=== PATIENT | male | born 1980 | race Caucasian/White ===

== ENCOUNTER 2017-04-25 09:38 | Emergency (ER) | payer OTHER ==
--- NOTE | 2017-04-25 10:01 | UC ---
General HPI - HPI Summary HPI Summary: 36 yo gentleman presents c/o sinus congestion / pressure, cough, post nasal drip , fontal h/a's. No vis / aud changes. Mr. Smallwood reports + household contact sick with similar. No rash. No sob / cp / palpitations. No GI issues. No rash. Hx asthma as a child, reports that he doesn't want inhalers. - History of Current Complaint Chief Complaint: UCRespiratory Stated Complaint: COUGH/SINUSES Time Seen by Provider: 04/25/17 10:00 Hx Obtained From: Patient - Allergy/Home Medications Allergies/Adverse Reactions: Allergies Allergy/AdvReac Type Severity Reaction Status Date / Time No Known Allergies Allergy Verified 04/25/17 09:58 PMH/Surg Hx/FS Hx/Imm Hx Previously Healthy: Yes - Surgical History Surgical History: Yes Surgery Procedure, Year, and Place: HERNIA REPAIR, TONSILLECTOMY, VASECTOMY - Social History Alcohol Use: Occasionally Substance Use Type: None Smoking Status (MU): Never Smoked Tobacco Review of Systems Constitutional: Negative Skin: Negative Eyes: Other - watery eyes ENT: Sore Throat, Ear Ache, Nasal Discharge, Sinus Congestion Respiratory: Cough Cardiovascular: Negative Gastrointestinal: Negative Genitourinary: Negative Motor: Negative Neurovascular: Negative Musculoskeletal: Negative Neurological: Negative Psychological: Negative Is Patient Immunocompromised?: No All Other Systems Reviewed And Are Negative: Yes Physical Exam Triage Information Reviewed: Yes Appearance: Well-Nourished - sitting up. conversing easily. Vital Signs: Initial Vital Signs Temp 97.9 F 04/25/17 09:47 Pulse 86 04/25/17 09:47 Resp 20 04/25/17 09:47 BP 138/93 04/25/17 09:47 Pulse Ox 98 04/25/17 09:47 Vital Signs Reviewed: Yes Eye Exam: Normal - eyes a little red /watery, not c/w conjunctivitis ENT: Positive: Pharyngeal erythema - red post pharynx, no spots, uvula midline. , Nasal congestion, TM dull - dull au, Sinus tenderness - subj frontal / maxillary sinus pressure and pain no redness, no cellulitis appreciated. Neck exam: Normal Neck: Positive: Supple, Nontender, No Lymphadenopathy Respiratory Exam: Normal - mild rhonchorus cough, no marco wheeze Respiratory: Positive: Chest non-tender, Lungs clear, Normal breath sounds, No respiratory distress, No accessory muscle use Cardiovascular Exam: Normal Cardiovascular: Positive: RRR, No Murmur, Pulses Normal, Brisk Capillary Refill Abdominal Exam: Normal Abdomen Description: Positive: Nontender Musculoskeletal Exam: Normal - moves all 4 ext's ok Neurological Exam: Normal - grossly nonfocal Psychological Exam: Normal - conversing easily and appropriately Skin Exam: Normal - no visible or reported rash Course/Dx - Course Course Of Treatment: 138/93 BP, d/w pt. Reviewed s/sx, coa and tx plan. Declines nasal spray or inhaler. Questions as posed answered to the best of my ability. - Differential Dx - Multi-Symptom Provider Diagnoses: sinusitis Discharge - Discharge Plan Condition: Stable Disposition: HOME Prescriptions: Azithromyxin LONNIE (NF) [Z-Lonnie (Zithromax) 250 mg tabs #6] 2 tab PO .TODAY, THEN 1 DAILY #6 tab Patient Education Materials: Sinusitis (ED) Referrals: No Primary Care Phys,NOPCP [Medical Doctor] - Additional Instructions: 138/93 Blood pressure - please have this rechecked, recommend within about 4 weeks. Follow up with your primary care physician for breathing recheck (about 4 weeks) . Seek medical attention for worse or new problems.
[2017-04-25 10:21] VITALS: BP 138/93
== END 2017-04-25 10:26 | disposition home or self-care (01) ==
LOC: UCCORT 09:38
DX: J32.9 Chronic sinusitis, unspecified (principal)
CPT/HCPCS: 99202; G0463

== ENCOUNTER 2017-07-02 07:12 | Emergency (ER) | payer OTHER ==
[2017-07-02 07:22] VITALS: BP 154/91
--- NOTE | 2017-07-02 07:34 | UC ---
FLU HPI - HPI Summary HPI Summary: Subjective fever, cough, achiness, congestion for two days. Brother was sick last week. Son has a viral type illness as well. He has no prior lung disease. - History of Current Complaint Chief Complaint: UCGeneralIllness Stated Complaint: COLD SYMPTOMS Time Seen by Provider: 07/02/17 07:26 Hx Obtained From: Patient Onset/Duration: Gradual Onset, Lasting Days Severity Currently: Moderate Severity Initially: Moderate Pain Intensity: 2 Associated Signs & Symptoms: Positive: Cough, Nasal Congestion. Negative: Vomiting, Diarrhea - Allergy/Home Medications Allergies/Adverse Reactions: Allergies Allergy/AdvReac Type Severity Reaction Status Date / Time No Known Allergies Allergy Verified 07/02/17 07:19 Home Medications: Home Medications Dm/Acetaminophen/Doxylamine [Vicks Nyquil Cold & Flu Liquid] 30 ml PO BEDTIME PRN 07/02/17 [History Confirmed 07/02/17] PMH/Surg Hx/FS Hx/Imm Hx Previously Healthy: No - obesity. - Surgical History Surgical History: Yes Surgery Procedure, Year, and Place: HERNIA REPAIR, TONSILLECTOMY, VASECTOMY - Family History Known Family History: Positive: Other - son and brother have similar. - Social History Occupation: Employed Full-time Lives: With Family Alcohol Use: Occasionally Substance Use Type: None Smoking Status (MU): Never Smoked Tobacco Review of Systems Constitutional: Fever ENT: Sore Throat, Nasal Discharge, Sinus Congestion Respiratory: Cough All Other Systems Reviewed And Are Negative: Yes Physical Exam Triage Information Reviewed: Yes Appearance: Well-Appearing, No Pain Distress Vital Signs: Initial Vital Signs Temp 98.2 F 07/02/17 07:20 Pulse 99 07/02/17 07:20 Resp 16 07/02/17 07:20 BP 154/91 07/02/17 07:20 Pulse Ox 96 07/02/17 07:20 Vital Signs Reviewed: Yes Eye Exam: Normal Eyes: Positive: Conjunctiva Clear ENT: Positive: Pharyngeal erythema, Nasal congestion, TMs normal, Sinus tenderness. Negative: TM bulging, TM dull, TM red, Tonsillar swelling, Tonsillar exudate, Uvula midline Neck: Positive: Supple, Nontender, No Lymphadenopathy Respiratory: Positive: Lungs clear, Normal breath sounds, No respiratory distress, No accessory muscle use. Negative: Respiratory distress, Decreased breath sounds, Accessory muscle use, Crackles, Rhonchi, Stridor, Wheezing Cardiovascular: Positive: No Murmur, Pulses Normal Abdomen Description: Positive: No Organomegaly, Soft. Negative: Distended, Guarding Musculoskeletal: Positive: ROM Intact, No Edema Neurological: Positive: Alert, Muscle Tone Normal. Negative: Fatigued Psychological: Positive: Age Appropriate Behavior Skin: Negative: rashes Flu Course/Dx - Course Course Of Treatment: Low risk for complications. No infant or elderly household contacts. - Differential Dx/Diagnosis Provider Diagnoses: viral illness. Influenza Discharge - Discharge Plan Condition: Good Disposition: HOME Prescriptions: Oseltamivir CAP* [Tamiflu CAP*] 75 mg PO BID #10 cap Patient Education Materials: Influenza (ED) Referrals: Michelle Pereira MD [Primary Care Provider] -
== END 2017-07-02 07:58 | disposition home or self-care (01) ==
LOC: UCCORT 07:12
DX: J10.1 Influenza due to other identified influenza virus with other respiratory manifestations (principal); B34.9 Viral infection, unspecified; Z20.89 Contact with and (suspected) exposure to other communicable diseases
CPT/HCPCS: 87502; 99212; G0463

== ENCOUNTER 2017-12-28 09:46 | Emergency (ER) | payer OTHER ==
[2017-12-28 10:22] VITALS: BP 146/95
--- NOTE | 2017-12-28 11:11 | RAD ---
INDICATION: Left ankle injury. TECHNIQUE: 3 views of the left ankle were obtained. FINDINGS: There is diffuse soft tissue swelling which is most prominent adjacent to the lateral malleolus. The bones are in normal alignment. There are 2 well-corticated small bony ossicles adjacent to the distal fibula. No acute fracture is seen. IMPRESSION: SOFT TISSUE SWELLING, NO ACUTE FRACTURE IS SEEN.
--- NOTE | 2017-12-28 11:13 | RAD ---
INDICATION: Left lower leg injury. TECHNIQUE: 2 views of the left lower leg were obtained. FINDINGS: The bones are normal alignment. No fracture is seen. IMPRESSION: NO EVIDENCE OF FRACTURE.
--- NOTE | 2017-12-28 11:21 | UC ---
Lower Extremity/Ankle HPI - HPI Summary HPI Summary: walking on black top and rolled L ankle last pm. c/o pain to lateral L leg and ankle. - History of Current Complaint Chief Complaint: UCLowerExtremity Stated Complaint: LEFT ANKLE INJURY Time Seen by Provider: 12/28/17 10:37 Hx Obtained From: Patient Onset/Duration: Sudden Onset Pain Intensity: 8 Aggravating Factor(s): Standing, Ambulation Alleviating Factor(s): Rest Able to Bear Weight: Yes - Allergies/Home Medications Allergies/Adverse Reactions: Allergies Allergy/AdvReac Type Severity Reaction Status Date / Time No Known Allergies Allergy Verified 12/28/17 10:22 Home Medications: Home Medications Ibuprofen TAB* [Advil TAB*] 600 mg PO Q6H PRN 12/28/17 [History Confirmed ] PMH/Surg Hx/FS Hx/Imm Hx Previously Healthy: Yes - Surgical History Surgical History: Yes Surgery Procedure, Year, and Place: HERNIA REPAIR, TONSILLECTOMY, VASECTOMY - Family History Known Family History: Positive: Other - son and brother have similar. - Social History Occupation: Employed Full-time Lives: With Family Alcohol Use: Occasionally Substance Use Type: None Smoking Status (MU): Never Smoked Tobacco - Immunization History Hx Tetanus, Diphtheria Vaccination: Yes Review of Systems Constitutional: Negative Skin: Negative Eyes: Negative ENT: Negative Respiratory: Negative Cardiovascular: Negative Gastrointestinal: Negative Genitourinary: Negative Motor: Negative Neurovascular: Negative Musculoskeletal: Other: - pain lle and ankle Neurological: Negative Psychological: Negative Is Patient Immunocompromised?: No All Other Systems Reviewed And Are Negative: Yes Physical Exam Triage Information Reviewed: Yes Appearance: Well-Appearing Vital Signs: Initial Vital Signs Temp 98.6 F 12/28/17 10:18 Pulse 93 12/28/17 10:18 Resp 16 12/28/17 10:18 BP 146/95 12/28/17 10:18 Pulse Ox 97 12/28/17 10:18 Vital Signs Reviewed: Yes Eyes: Positive: Conjunctiva Clear ENT: Positive: Normal ENT inspection Neck: Positive: Supple, Nontender Respiratory: Positive: Lungs clear, Normal breath sounds Cardiovascular: Positive: RRR, No Murmur Abdomen Description: Positive: Nontender, No Organomegaly, Soft Bowel Sounds: Positive: Present Musculoskeletal: Positive: Other: - LLE: hip, knee, achilles are atrumatic. Mid- lateral leg is tender but no swelling or bruising. L lateral ankle is tender and swollen. foot non tender with full s/v/m function. Neurological: Positive: Alert Psychological: Positive: Age Appropriate Behavior Skin Exam: Normal Diagnostics - Radiology No standard instances Radiology Interpretation Completed By: Radiologist - FINDINGS: IMPRESSION: NO EVIDENCE OF FRACTURE LLE. There is diffuse soft tissue swelling which is most prominent adjacent to the lateral malleolus. The bones are in normal alignment. There are 2 well-corticated small bony ossicles adjacent to the distal fibula. No acute fracture is seen l ANKLE Lower Extremity Course/Dx - Course Course Of Treatment: NO FX'S OR DISLOCATION. - Differential Dx/Diagnosis Provider Diagnoses: SPRAIN LEFT ANKLE. STRAIN L LOWER-LATERAL LEG Discharge - Sign-Out/Discharge Documenting (check all that apply): Patient Departure - Discharge Plan Condition: Stable Disposition: HOME Patient Education Materials: Ankle Sprain (ED), Muscle Strain (ED) Referrals: Michelle Pereira MD [Primary Care Provider] - If Needed Yariel Esteves MD [Medical Doctor] - 7 Days - Billing Disposition and Condition Condition: STABLE Disposition: Home
== END 2017-12-28 11:43 | disposition home or self-care (01) ==
LOC: UCCORT 09:46
DX: S86.912A Strain of unspecified muscle(s) and tendon(s) at lower leg level, left leg, initial encounter (principal); S93.402A Sprain of unspecified ligament of left ankle, initial encounter; X50.0XXA Overexertion from strenuous movement or load, initial encounter; Y93.01 Activity, walking, marching and hiking; Y92.9 Unspecified place or not applicable
CPT/HCPCS: 99213; G0463

== ENCOUNTER 2018-05-17 09:55 | Emergency (ER) | payer OTHER ==
[2018-05-17 10:26] VITALS: BP 137/102
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
== END 2018-05-17 12:05 | disposition home or self-care (01) ==
LOC: UCCORT 09:55
DX: M54.5 Low back pain (principal)
CPT/HCPCS: 72110; 99212; G0463

== ENCOUNTER 2019-08-08 09:01 | Emergency (ER) | payer OTHER ==
[2019-08-08 09:13] VITALS: BP 149/89
--- NOTE | 2019-08-08 09:24 | UC ---
Skin Complaint HPI - HPI Summary HPI Summary: Pt presents with c/o of retained head of tick in abdomen. Pt noticed tick yesterday and attempted to remove and was unable to remove entire tick. - History of Current Complaint Chief Complaint: UCSkin Time Seen by Provider: 08/08/19 09:17 Stated Complaint: TICK Hx Obtained From: Patient Onset/Duration: Sudden Onset, Still Present Skin Exposure Onset/Duration: Hours Ago Timing: Constant Onset Severity: Mild Current Severity: Mild Pain Intensity: 0 Location: Discrete - abdomen, just superior to umbilicus Aggravating Factor(s): Nothing Alleviating Factor(s): Nothing Associated Signs & Symptoms: Positive: Negative Related History: Foreign Body, Insect Bite/Sting - Allergy/Home Medications Allergies/Adverse Reactions: Allergies Allergy/AdvReac Type Severity Reaction Status Date / Time gluten Allergy Intermediate ACHEY Verified 08/08/19 09:13 Home Medications: Home Medications Ibuprofen TAB* [Advil TAB*] 2 tab PO ONCE 06/28/19 [History Confirmed 08/08/19] DOXYcycline CAP(*) [DOXYcycline 100MG CAP(*)] 100 mg PO Q12H #20 cap 08/08/19 [ Rx] PMH/Surg Hx/FS Hx/Imm Hx Previously Healthy: Yes - Surgical History Surgical History: Yes Surgery Procedure, Year, and Place: HERNIA REPAIR, TONSILLECTOMY, VASECTOMY - Family History Known Family History: Positive: Cardiac Disease, Other - son and brother have similar. - Social History Occupation: Employed Full-time Lives: With Family Alcohol Use: Occasionally Substance Use Type: None Smoking Status (MU): Never Smoked Tobacco Have You Smoked in the Last Year: No - Immunization History Hx Tetanus, Diphtheria Vaccination: Yes Review of Systems All Other Systems Reviewed And Are Negative: Yes Constitutional: Positive: Negative Skin: Positive: Other - tick bite with head of tick still embedded Eyes: Positive: Negative ENT: Positive: Negative Respiratory: Positive: Negative Cardiovascular: Positive: Negative Gastrointestinal: Positive: Negative Genitourinary: Positive: Negative Motor: Positive: Negative Neurovascular: Positive: Negative Musculoskeletal: Positive: Negative Neurological/Mental Status: Positive: Negative Psychological: Positive: Negative Is Patient Immunocompromised?: No Physical Exam Triage Information Reviewed: Yes Appearance: Well-Appearing Vital Signs: Initial Vital Signs Temp 98.6 F 08/08/19 09:10 Pulse 61 03/22/20 09:10 Resp 16 08/08/19 09:10 BP 149/89 08/08/19 09:10 Pulse Ox 99 08/08/19 09:10 Vital Signs Reviewed: Yes Eye Exam: Normal ENT: Positive: Hearing grossly normal Neck exam: Normal Respiratory Exam: Normal Cardiovascular Exam: Normal Abdominal Exam: Other - very small piece of tick still embeddeded in abdomen Musculoskeletal Exam: Normal Neurological Exam: Normal Psychological Exam: Normal Skin Exam: Other - very small piece of (presumably) tick remaining in abdomen Course/Dx - Differential Diagnoses - Skin Complaint Differential Diagnoses: Tick Born Illness - Diagnoses Provider Diagnosis: Tick bite of abdomen Discharge ED - Sign-Out/Discharge Documenting (check all that apply): Patient Departure All imaging exams completed and their final reports reviewed: No Studies - Discharge Plan Condition: Stable Disposition: HOME Prescriptions: DOXYcycline CAP(*) [DOXYcycline 100MG CAP(*)] 100 mg PO Q12H #20 cap Patient Education Materials: Tick Bite (ED) Referrals: [facility] [Outside] No Primary Care Phys,NOPCP [Primary Care Provider] - - Billing Disposition and Condition Condition: STABLE Disposition: Home
== END 2019-08-08 09:34 | disposition home or self-care (01) ==
LOC: UCCORT 09:01
DX: S30.861A Insect bite (nonvenomous) of abdominal wall, initial encounter (principal); W57.XXXA Bitten or stung by nonvenomous insect and other nonvenomous arthropods, initial encounter; Y92.9 Unspecified place or not applicable; Z91.018 Allergy to other foods
CPT/HCPCS: 99212; G0463